=== PATIENT | female | born 1990 | race Two or more races ===

== ENCOUNTER 2020-02-25 12:25 | Emergency (ER) | payer MEDICAID ==
[~2020-02-25] VITALS: Ht 152.4 cm; Wt 79.4 kg
[2020-02-25 12:59] VITALS: BP 119/77
== END 2020-02-25 14:03 | disposition left against medical advice (07) ==
LOC: ER 12:25
DX: M79.601 Pain in right arm (principal); Z53.21 Procedure and treatment not carried out due to patient leaving prior to being seen by health care provider

== ENCOUNTER 2020-05-04 16:15 | Emergency (ER) | payer MEDICAID ==
[~2020-05-04] VITALS: Ht 152.4 cm; Wt 77.1 kg
[2020-05-04 16:31] VITALS: BP 116/74
== END 2020-05-04 17:52 | disposition home or self-care (01) ==
LOC: ER 16:15
DX: Z48.00 Encounter for change or removal of nonsurgical wound dressing (principal)

== ENCOUNTER 2024-02-12 20:19 | Emergency (ER) | payer MEDICAID ==
[~2024-02-12] VITALS: Ht 152.4 cm; Wt 92.3 kg
[2024-02-12 21:09] VITALS: BP 143/87; PULSE 96; RESP 17; TEMP 98.2; O2SAT 96
[2024-02-12] MEDS: IBUPROFEN 800 MG TAB PO ONE (21:21)
== END 2024-02-12 22:16 | disposition home or self-care (01) ==
LOC: ER 20:19
DX: M25.531 Pain in right wrist (principal); M79.631 Pain in right forearm; X58.XXXA Exposure to other specified factors, initial encounter; Y93.89 Activity, other specified; Y92.89 Other specified places as the place of occurrence of the external cause; Y99.8 Other external cause status
CPT/HCPCS: 73090; 73110